=== PATIENT | male | born 1990 | race Caucasian/White ===

== ENCOUNTER → 2021-04-13 16:39 | Outpatient (BNVA) | payer OTHER, SELFPAY | PROVIDERS: Visit Provider Emergency Medicine | DX: Z20.822 Contact with and (suspected) exposure to COVID-19 (principal) | CPT/HCPCS: 87635 ==

== ENCOUNTER → 2021-11-16 15:09 | Outpatient (BNVA) | payer OTHER, SELFPAY | PROVIDERS: Visit Provider Emergency Medicine | DX: M25.511 Pain in right shoulder (principal) | CPT/HCPCS: 73010; 73030 ==

== ENCOUNTER → 2021-11-25 09:48 | Outpatient (BNVA) | payer OTHER, SELFPAY | PROVIDERS: Visit Provider Emergency Medicine | DX: K52.9 Noninfective gastroenteritis and colitis, unspecified (principal); K92.89 Other specified diseases of the digestive system; B97.89 Other viral agents as the cause of diseases classified elsewhere | CPT/HCPCS: 87635 ==

== ENCOUNTER → 2024-05-20 14:24 | Outpatient (BNVA) | payer MEDICAID, SELFPAY | PROVIDERS: Visit Provider Nurse Practitioner | DX: Z20.2 Contact with and (suspected) exposure to infections with a predominantly sexual mode of transmission (principal); F19.21 Other psychoactive substance dependence, in remission | CPT/HCPCS: 80074; 87491; 87591; 87806 ==

== ENCOUNTER → 2024-05-22 16:56 | Outpatient (BNVA) | payer MEDICAID, SELFPAY | PROVIDERS: Visit Provider Nurse Practitioner | DX: Z20.2 Contact with and (suspected) exposure to infections with a predominantly sexual mode of transmission (principal); F19.21 Other psychoactive substance dependence, in remission | CPT/HCPCS: 87522 ==

== ENCOUNTER → 2024-06-25 13:49 | Outpatient (BNVA) | payer MEDICAID, SELFPAY | PROVIDERS: PCP Family Medicine; Visit Provider Family Medicine | DX: B19.20 Unspecified viral hepatitis C without hepatic coma (principal) | CPT/HCPCS: 80053; 84443; 85025; 85610; 87902 ==

== ENCOUNTER 2024-07-22 08:00 | Outpatient (CLI) | payer MEDICAID, SELFPAY ==
--- NOTE | 2024-07-22 08:00 | US_ITS ---
WS: [id number] RIGHT UPPER QUADRANT ULTRASOUND HISTORY: hep c COMPARISON: None available. Liver: 14.3 cm in length. Normal size liver. Very subtle surface fraying and nodularity of the liver which is typically seen with cirrhosis. There is no mass or bile duct dilatation. Portal Vein: Normal hepatopetal flow with monophasic waveform. Gallbladder: Normally distended gallbladder with no stones or wall thickening. CBD: 0.5 cm Pancreas: Normal size and echogenicity. Right kidney: 10.4 cm in length. Normal size and echogenicity. No hydronephrosis or mass. Aorta and IVC: Unremarkable abdominal aorta and IVC. No ascites. US/US liver [id number] IMPRESSION: 1. Early changes of cirrhosis along the surface of the liver. No hepatic mass. 2. Otherwise negative.
== END 2024-07-22 08:10 | disposition home or self-care (01) ==
PROVIDERS: PCP Family Medicine; Visit Provider Family Medicine
DX: B19.20 Unspecified viral hepatitis C without hepatic coma (principal); K74.60 Unspecified cirrhosis of liver
CPT/HCPCS: 76705

== ENCOUNTER 2025-05-12 12:07 | Emergency (ER) | payer SELFPAY ==
[2025-05-12 12:09] VITALS: BP 144/79; PULSE 92; RESP 14; TEMP 36.7; O2SAT 100; BMI 25.8
--- OUTSIDE RECORDS SUMMARY | 2025-05-12 12:14 | XMS_ITS | Clinical Summary ---
Author Organization [facility] Address [address] [address] Phone Care Team Providers Care Planer Offbearer Name Role Phone Unavailable Primary Care Provider Unavailabl e Social History Tobacco Use Types Packs/Day Years Used Date Smoking Tobacco: Never Assessed Sex and Gender Information Value Date Recorded Sex Assigned at Not on file Legal Sex Male 10:49 AM CDT Gender Identity Not on file Sexual Orientation Not on file Plan of Treatment Health Maintenance Due Date Last Done Comments MMR Vaccines (1 of 1 - Standard series) 1991 Varicella Vaccines (1 of 2 - 13+ 2-dose series) 2003 Depression Screening 2008 Social Drivers of Health (SDoH) 2008 Hepatitis B Vaccines (1 of 3 - 19+ 3-dose series) 2009 DTaP,Tdap,and Td Vaccines (7 - Td or Tdap) 04/04/2016 04/04/2006, 04/03/1996, 12/05/1991, Additional history exists HPV Vaccines (1 - 3-dose SCDM series) 2017 COVID-19 Vaccine ( - season) 2025 Influenza Vaccine (#1) 2025 Pneumococcal Vaccine: 50+ Years (1 of 1 - PCV) 2040 Zoster Vaccines (1 of 2) 2040 RSV Vaccines (1 - 1-dose 75+ series) 2065 IPV Vaccines Completed 04/03/1996, 11/18, 1990, Additional history exists HIB Vaccines Aged Out No longer eligi ble based on patient's age to complete this topic Hepatitis A Vaccines Aged Out No long er eligible based on patient's age to complete this topic Meningococcal B Vaccine Aged Out No l onger eligible based on patient's age to complete this topic Meningococcal Vaccine Aged Out No popeye yosef eligible based on patient's age to complete this topic Pneumococcal Vaccine Aged Out No long er eligible based on patient's age to complete this topic Rotavirus Vaccines Aged Out No longer eligible based on patient's age to complete this topic
[2025-05-12] MEDS: tetracaine 0.5% Op Soln 4 mL Btl 1 DROP EYE-LEFT (12:22)
--- NOTE | 2025-05-12 12:28 | W.ED.EYEPROB ---
HPI - Eye Problem General: Chief complaint: Eye Problems Stated complaint: left eye pain Time Seen by Provider: 05/12/25 12:18 History of Present Illness: 34-year-old man who presents emergency room with left eye pain. Says has been hurting for couple of days. He works doing [employer] and says he might of got some in it. He says actually has improved now. He had some blurred vision for a while. Redness is improving some but it still hurt so he felt like it needed to be evaluated. Related Data Home Medications ?Medication ?Instructions ?Recorded ?Confirmed buprenorphine 8 mg-naloxone 2 mg 1 tab sublingual .4 X's day 05/01/24 10/30/24 sublingual tablet glecaprevir 100 mg-pibrentasvir 40 3 tab PO DAILY 10/30/24 10/30/24 mg tablet (Mavyret) Previous Rx's ?Medication ?Instructions ?Recorded bupropion HCl 75 mg tablet 75 mg PO QAM 30 days #30 tabs 05/01/24 naproxen 500 mg tablet 500 mg PO BID #20 tabs 05/12/24 cephalexin 500 mg capsule 500 mg PO BID 7 days #14 caps 10/30/24 naproxen 500 mg tablet 500 mg PO BID PRN pain #30 tabs 10/30/24 tobramycin 0.3 %-dexamethasone 1 drp ophthalmic (eye) Q6H 5 days 05/12/25 0.05 % eye drops,suspension #5 mL (Tobradex ST) Allergies Allergy/AdvReac Type Severity Reaction Status Date / Time No Known Allergies Allergy Verified 10/30/24 13:19 Review of Systems Narrative: Constitutional symptoms: Negative except as documented in HPI. Skin symptoms: Negative except as documented in HPI. Eye symptoms: Negative except as documented in HPI. ENMT symptoms: Negative except as documented in HPI. Respiratory symptoms: Negative except as documented in HPI. Cardiovascular symptoms: Negative except as documented in HPI. Gastrointestinal symptoms: Negative except as documented in HPI. Genitourinary symptoms: Negative except as documented in HPI. Musculoskeletal symptoms: Negative except as documented in HPI. Neurologic symptoms: Negative except as documented in HPI. Psychiatric symptoms: Negative except as documented in HPI. Endocrine symptoms: Negative except as documented in HPI. PFS ED PFS: Medical History (Updated 05/12/25 @ 12:25 by Elvia Overton MD) Right shoulder tendonitis Family History Grandfather Cancer maternal Heart disease maternal Denies family history of Diabetes Chronic kidney disease (CKD) Thyroid disease Stroke Social History Smoking and tobacco/nicotine status: current every day tobacco/nicotine user Physical Exam Narrative: EXAM NARRATIVE: General: Alert, no acute distress. Skin: warm and dry Head: Normocephalic Neck: Trachea midline Eye: Extraocular movements are intact. Pupils equal reactive. Some mild scleral erythema. Vision grossly intact Ears, nose, mouth and throat: Oral mucosa moist Respiratory: Respirations are non-labored Musculoskeletal: Normal ROM Gastrointestinal: Abdomen does not appear distended Neurological: Alert and oriented, No focal neurological deficit observed. Psychiatric: Cooperative, appropriate mood & affect. Course Vital Signs: Vital signs: Vital Signs Temperature 98.0 F 05/12/25 12:09 Pulse Rate 92 05/12/25 12:09 Respiratory Rate 14 05/12/25 12:09 Blood Pressure 144/79 05/12/25 12:09 Pulse Oximetry 100 05/12/25 12:09 Oxygen Delivery Me thod Room Air 05/12/25 12:09 MDM - Eye Problem Medical Decision Making Medical decision making: Differential diagnosis including but not limited to and based on the above HPI, review of systems and physical exam: In this patient with eye pain there would be concern for foreign body versus corneal abrasion versus a chemical or infectious conjunctivitis I reviewed the patient's chart. Procedure: UV fluorescein examination of the eye tetracaine applied to the affected eye. once significant analgesia occurred fluorescein dye was applied to the eye Examination under UV light reveals a small corneal abrasion at 6:00 over the iris. TobraDex applied to the eye here and a prescription was given Assessment and plan: Corneal abrasion - Discharged home - Discussed plan with patient. Answered any questions. - Evaluation and treatment of this problem were appropriate in the emergency setting. No radiology studies performed this visit Discharge Plan Discharge Patient Disposition: Home Clinical Impression: Corneal abrasion Condition: Stable Prescriptions: New Tobradex ST 0.3-0.05 % drops,suspension 1 drp ophthalmic (eye) Q6H 5 Days Qty: 5 0RF No Action buprenorphine-naloxone 8-2 mg tablet, sublingual 1 tab sublingual .4 X's day bupropion HCl 75 mg tablet 75 mg PO QAM 30 Days Qty: 30 5RF lidocaine (PF) 10 mg/mL (1 %) solution 10 ml IM ONCE Qty: 1 0RF Mavyret 100-40 mg tablet 3 tab PO DAILY Rx Instructions: must administer with a meal/food cephalexin 500 mg capsule 500 mg PO BID 7 Days Qty: 14 0RF naproxen 500 mg tablet 500 mg PO BID PRN (Reason: pain) Qty: 30 0RF naproxen 500 mg tablet 500 mg PO BID Qty: 20 0RF Discharge Orders: Discharge ED (Routine); Ordered 05/12/25 Ordered By: Elvia Overton Referrals: Kathi Mckee MD [Primary Care Provider, Family Practice] Discharge Diet: Usual diet Discharge Activity: Increase activity as tolerated Patient Instructions: Corneal Abrasion (ED), Opioid Safety, Pain Management, Patient Portal & Kassandra Instructions Activity Restrictions/Additional Instructions: Thank you for choosing [facility] for your healthcare needs today. You have been screened and evaluated and felt safe for discharge. Health conditions do change or evolve sometimes and as such it is important that you follow up with your Primary Doctor to be re checked, 3-5 days is a general good time frame for follow up. 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
[2025-05-12] MEDS: tobramycin-dexametha Op Susp 5 mL Btl 2 DROP EYE-LEFT (12:44)
[2025-05-12 13:21] LABS: Respiratory Syncytial Virus Ce NEGATIVE (Negative); SARS-CoV-2 PCR NEGATIVE (Negative)
== END 2025-05-12 12:44 | disposition home or self-care (01) ==
PROVIDERS: Emergency Provider Emergency Medicine; PCP Family Medicine
DX: S05.02XA Injury of conjunctiva and corneal abrasion without foreign body, left eye, initial encounter (principal); X58.XXXA Exposure to other specified factors, initial encounter; Z11.52 Encounter for screening for COVID-19
CPT/HCPCS: 87637; 99283; J9999